=== PATIENT | female | born 1960 ===

== ENCOUNTER → 2025-03-11 | Outpatient (CLI) | payer OTHER ==
[~2025-03-11] MED LIST: CLIN300 PO; HYDACE5 PO; IBUP800 PO; OXYACE5T PO
== END ==
LOC: LAB SHORT 17:42 → LAB 17:42
DX: L88 Pyoderma gangrenosum (principal); L08.9 Local infection of the skin and subcutaneous tissue, unspecified; B00.1 Herpesviral vesicular dermatitis; R60.0 Localized edema
CPT/HCPCS: 87070; 87077; 87186; 87205